=== PATIENT | female | born 1985 | race Two or more races ===

== ENCOUNTER 2016-12-12 01:48 | Emergency (ER) | payer MEDICAID ==
[~2016-12-12] VITALS: Ht 165.1 cm; Wt 81.6 kg
[2016-12-12] MEDS ORDERED: SODIUM CHLORIDE 0.9% 1,000 ML IV ONE (02:45)
[2016-12-12] MEDS ORDERED: NALBUPHINE HCL 10 MG/1ml INJECTION IV ONE (02:45)
[2016-12-12] MEDS ORDERED: ONDANSETRON HCL 4 MG/2 ML VIAL IV ONE ×2 (02:45→04:00)
[2016-12-12 03:02] LABS: Basophils # (auto) 0.1 uL; Eosinophils # (auto) 0.3 uL; Eosinophils % (auto) 2.8 % (0.0-7.0); Hematocrit 42.8 % (36.0-46.0); Hemoglobin 14.6 g/dL (12.2-16.2); Lymphocytes # (auto) 2.8 uL; Lymphocytes % (auto) 27.1 % (10.0-50.0); Mean Corpuscular Hemoglobin 31.1 pg (28.0-32.0); Mean Corpuscular Volume 91.3 fL (80.0-100.0); Monocytes # (auto) 0.6 uL; Monocytes % (auto) 5.7 % (0.0-12.0); Neutrophils # (auto) 6.5 uL; Neutrophils % (auto) 63.4 % (37.0-80.0); Platelet Count (auto) 224 10^3/uL (140-450); Red Cell Distribution Width 13.1 % (11.8-14.3); White Blood Cell 10.2 10^3/uL (4.4-10.8)
[2016-12-12 03:15] LABS: Albumin 3.9 g/dL (3.4-5.0); Alkaline Phosphatase 97 U/L (45-117); Amylase 58 U/L (25-115); Anion Gap 8 (5-15); Aspartate Aminotransferase 15 U/L (15-37); Bilirubin, Total 0.3 mg/dL (0.2-1.0); Blood Urea Nitrogen 17 mg/dL (7-18); Calcium 8.5 mg/dL (8.5-10.1); Carbon Dioxide 26 mmol/L (21-32); Chloride 106 mmol/L (98-107); GFR African American 118 mL/min; GFR Non-African American 97 mL/min; Glucose 118 mg/dL (74-106); Magnesium 2.2 mg/dL (1.6-2.6); Potassium 3.3 mmol/L (3.5-5.1); Sodium 140 mmol/L (136-145)
[2016-12-12] MEDS ORDERED: HYDROmorphone HCL 2 MG/ML VL IV ONE (04:00)
[2016-12-12 04:16] VITALS: BP 122/72
== END 2016-12-12 04:50 | disposition home or self-care (01) ==
LOC: ER 01:50
DX: K29.70 Gastritis, unspecified, without bleeding (principal); Z90.49 Acquired absence of other specified parts of digestive tract
CPT/HCPCS: 36415; 74176; 80053; 82150; 83690; 83735; 84484; 84702; 85025; 96361; 96374; 96375; 96376; 99285; J1170; J2300; J2405; J7030

== ENCOUNTER 2018-10-06 11:29 | Emergency (ER) | payer MEDICAID ==
[~2018-10-06] VITALS: Ht 165.1 cm; Wt 90.7 kg
[2018-10-06 11:50] VITALS: BP 105/72
== END 2018-10-06 13:32 | disposition home or self-care (01) ==
LOC: ER 11:36
DX: M67.431 Ganglion, right wrist (principal); Z90.49 Acquired absence of other specified parts of digestive tract
CPT/HCPCS: 73110

== ENCOUNTER 2024-06-28 08:47 | Inpatient (IN) | payer MEDICAID ==
[~2024-06-28] VITALS: Ht 167.6 cm; Wt 91.5 kg
--- NOTE | 2024-06-28 09:15 | ED.PDOC ---
GI ASSESSMENT HPI Comments 39 y/o F, with PMHx of cholecystectomy and bowel obstruction presents to the ED for CC of abdominal pain. Patient states, that she has been experiencing suprapubic abdominal pain with associated diarrhea x1day. Patient relays, similar symptoms in the past which resulted in a partal colectomy in 2020. Patient denies melena, blood streaked bowels, nausea, or vomiting. No other associated symptoms, modifiers, recent injuries or sick contacts present at this time. 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 History: Denies all SUPERVISOR CYTOLOGY Hx Family History Family History: Unknown Social History Smoker: Non-Smoker Alcohol: Denies ETOH Use Drugs: Denies Drug Use Lives In: Home Constitutional: denies: chills, diaphoresis, fatigue, fever, malaise, sweats, weakness, others EENTM: denies: blurred vision, double vision, ear bleeding, ear discharge, ear drainage, ear pain, ear ringing, eye pain, eye redness, hearing loss, mouth pain, mouth swelling, nasal discharge, nose bleeding, nose congestion, nose pain, photophobia, tearing, throat pain, throat swelling, voice changes, others Respiratory: denies: cough, hemoptysis, orthopnea, SOB at rest, shortness of breath, SOB with excertion, stridor, wheezing, others Cardiovascular: denies: chest pain, dizzy spells, diaphoresis, Dyspnea on exertion, edema, irregular heart beat, left arm pain, lightheadedness, palpitations, PND, syncope, others Gastrointestinal: reports: abdominal pain, diarrhea; denies: abdomen distended, blood streaked bowels, constipated, dysphagia, difficulty swallowing, hematemesis, melena, nausea, poor appetite, poor fluid intake, rectal bleeding, rectal pain, vomiting, others Genitourinary: denies: abnormal vagina bleeding, burning, dyspareunia, dysuria, flank pain, frequency, hematuria, incontinence, pain, , vagina discharge, urgency, others Neurological: denies: dizziness, fainting, headache, left sided numbness, left sided weakness, numbness, paresthesia, pre-existing deficit, right sided numbness, right sided weakness, seizure, speech problems, tingling, tremors, weakness, others Musculoskeletal: denies: back pain, gout, joint pain, joint swelling, muscle pain, muscle stiffness, neck pain, others Integumetry: denies: bruises, change in color, change in hair/nails, dryness, laceration, lesions, lumps, rash, wounds, others Allergic/Immunocompromised: denies: Difficulty Healing, Frequent Infections, Hives, Itching, others Hematologic/Lymphatic: denies: anemia, blood clots, easy bleeding, easy bruising, swollen glands, others Endocrine: denies: excessive hunger, excessive sweating, excessive thirst, excessive urination, flushing, intolerance to cold, intolerance to heat, unexplained weight gain, unexplained weight loss, others Psychiatric: denies: anxiety, bipolar disorder, depression, hopeless, panic disorder, schizophrenia, sleepless, suicidal, others All Other Systems: Reviewed and Negative Physical Exam General Appearance: Moderate Distress HEENT: Normal ENT Inspection, Pharynx Normal, TMs Normal Neck: Full Range of Motion, Non-Tender, Normal, Normal Inspection Respiratory: Chest Non-Tender, Lungs Clear, No Accessory Muscle Use, No Respiratory Distress, Normal Breath Sounds Cardiovascular: No Edema, No JVD, No Murmur, No Gallop, Normal Peripheral Pulses, Regular Rate/Rhythm Breast Exam: Deferred Gastrointestinal: No Organomegaly, Non Tender, No Pulsatile Mass, Normal Bowel Sounds, Soft Genitalia: Deferred Pelvic: Deferred Rectal: Deferred Extremities: No calf tenderness, Normal capillary refill, Normal inspection, Normal range of motion, Non-tender, No pedal edema Musculoskeletal : Apperance: Normal Neurologic: Alert, information security specialist II-XII nml as Tested, No Motor Deficits, Normal Affect, Normal Mood, No Sensory Deficits Cerebellar Function: Normal Reflexes: Normal Skin: Dry, Normal Color, Warm Peripheral Pulses: 3+ Radial (R), 3+ Radial (L) Lymphatic: No Adenopathy Was a procedure done? Was a procedure done?: No GI differential Dx Differential Diagnosis: Bowel Obstruction, Constipation, Diverticular disease, Esophagitis, Gastritis/PUD, Gastroenteritis, Electrolyte Imbalance, Food Poisoning, Bacterial, Viral X-Ray, Labs, Meds, VS Vital Signs Date Time Temp Pulse Resp B/P (MAP) Pulse Ox O2 Delivery O2 Flow Rate FiO2 06/28/24 09:18 98.6 93 16 141/87 (105) 99 98.6 Lab Test 06/28/24 09:20 06/28/24 09:07 Range/Units White Blood Count 8.8 4.4-10.8 10^3/uL Red Blood Count 4.81 4.0-5.20 10^6/uL Hemoglobin 14.2 12.2-16.2 g/dL Hematocrit 42.5 36.0-46.0 % Mean Corpuscular Volume 88.3 80.0-100.0 fL Mean Corpuscular Hemoglobin 29.5 28.0-32.0 pg Mean Corpuscular Hemoglobin Concent 33.4 32.0-36.0 g/dL Red Cell Distribution Width 13.8 11.8-14.3 % Platelet Count 283 140-450 10^3/uL Mean Platelet Volume 9.2 6.9-10.8 fL Neutrophils (%) (Auto) 58.7 37.0-80.0 % Lymphocytes (%) (Auto) 26.0 10.0-50.0 % Monocytes (%) (Auto) 7.1 0.0-12.0 % Eosinophils (%) (Auto) 7.3 H 0.0-7.0 % Basophils (%) (Auto) 0.9 0.0-2.0 % Neutrophils # (Auto) 5.2 1.6-8.6 10 ^3/uL Lymphocytes # (Auto) 2.3 0.4-5.4 10 ^3/uL Monocytes # (Auto) 0.6 0-1.3 10 ^3/uL Eosinophils # (Auto) 0.6 0-0.8 10 ^3/uL Basophils # (Auto) 0.1 0-0.2 10 ^3/uL Nucleated Red Blood Cells 0.0 % Sodium Level 140 136-145 mmol/L Potassium Level 3.7 3.5-5.1 mmol/L Chloride Level 106 98-107 mmol/L Carbon Dioxide Level 26 20-31 mmol/L Anion Gap 8 5-15 Blood Urea Nitrogen 8 L 9-23 mg/dL Creatinine 0.79 0.550-1.02 mg/dL Glomerular Filtration Rate Calc 98 >90 mL/min BUN/Creatinine Ratio 10.1 10.0-20.0 Serum Glucose 92 74-106 mg/dL Calcium Level 9.8 8.7-10.4 mg/dL Urine Color Colorless Yellow Urine Clarity Turbid H Clear Urine pH 5.5 5.0-9.0 Urine Specific [place] 1.006 1.001-1.035 Urine Protein Negative Negative Urine Ketones Negative Negative Urine Blood Negative Negative /uL Urine Nitrite Negative Negative Urine Bilirubin Negative Negative Urine Urobilinogen Normal Negative mg/dL Urine Leukocyte Esterase Negative Negative /uL Urine RBC 1 0 - 4 /hpf Urine Microscopic WBC 1 0-5 /HPF Urine Squamous Epithelial Cells Few <5 /hpf Urine Bacteria Few H None Seen /hpf Urine Glucose Normal Normal mg/dL [place] [id number] Ph: [phone] DIAGNOSTIC IMAGING Diagnostic Imaging Report : [id number] Signed PATIENT: BELKIS ETIENNE MACCT: [id number] UNIT: [id number] : 1985 LOC: ER ROOM / BED: / AGE / SEX: 39 / F ADM STATUS: REG ER SERVICE 1010 ORDERING PHYSICIAN: LUDMILA VANN MD PROCEDURE(s): ABPL - CT AB PEL WO CON-NO ORAL OR IV REASON: diffusepain ORDER NUMBER(s): [id number], ACCESSION NUMBER(s): [id number] CLINICAL INFORMATION: 39 years old, Female; diffuse pain. TECHNIQUE: Axial CT images of the abdomen and pelvis were obtained without IV contrast. Coronal and sagittal reformatted images were obtained, reviewed, and stored. Evaluation of the parenchymal organs is limited without IV contrast. Evaluation of the bowel and mesentery is limited without oral contrast. All CT scans at this medical facility are performed using dose modulation techniques as appropriate to a performed exam including the following: Automated exposure control was utilized; adjustment of the MA and/or KV according to patient size; and use of iterative reconstruction technique. CTDIvol = 18.99 mGy DLP = 1046.56 mGy-cm COMPARISON: None FINDINGS: Lung bases: Lung bases are clear. Liver: Grossly unremarkable in its noncontrast enhanced appearance. No abnormal density or focal lesion identified. Biliary: Cholecystectomy. Spleen: Unremarkable. Pancreas: Grossly unremarkable in its noncontrast enhanced appearance. Adrenal glands: Unremarkable. No mass. Kidneys: No hydronephrosis. No renal or ureteral calculi. Aorta/Vascular: No aneurysm or significant calcification. Retroperitoneum: No mass or lymphadenopathy. Bowel/mesentery: No small bowel obstruction. Nonspecific nondilated fluid-filled small bowel loops. Postsurgical changes of right hemicolectomy with enterocolonic anastomosis at the level of the transverse colon. Scattered colonic diverticula without adjacent inflammatory changes to suggest diverticulitis. Pelvic organs: Grossly unremarkable. Bladder: Unremarkable. No mass. Abdominal wall: Diastasis of the rectus abdominis muscles with slight protrusion of fat at the level of the diastasis. Bones: No acute fracture or suspicious intraosseous lesion. IMPRESSION: 1. No acute abnormality identified in the abdomen or pelvis. 2. Scattered colonic diverticula without adjacent inflammatory changes to suggest diverticulitis. 3. Diastasis of the rectus abdominis muscles with mild protrusion of fat at the level of the diastasis. 4. No small bowel obstruction. Nonspecific nondilated fluid-filled small bowel loops, may be seen with ileus or enteritis in the appropriate clinical setting. ATED BY: VISHAL MEREDITH DO DICTATED DATE/TIME: 06/28/24 1108 SIGNED BY: VISHAL MEREDITH DO SIGNED DATE/TIME: 06/28/24 1108 CC: Patient alert. Came in for abdominal pain. Vitals stable. Answering questions. On examination she is tender to touch. CT scan of the abdomen. She did have bowel surgery in the past for similar symptom. Reviewed history. Explained to the patient. Continue monitoring. Time of 1ST Reevaluation: 09:35 Reevaluation 1ST: Unchanged Patient Education/Counseling: Diagnosis, Treatment Family Education/Counseling: No Family Present Departure 1 Departure Time of Disposition: 10:09 Impression: Primary Impression: Acute abdominal pain Additional Impression: Non-specific colitis Disposition: ADMITTED INPATIENT Admit to: Med Surg Condition: Guarded Critical Care Note Critical Care Time?: No Stability Stability form required: No Heart Score Heart Score: Heart Score Response (Comments) Value History N/A 0 EKG N/A 0 Age N/A 0 Risk Factors N/A 0 Troponin N/A 0 Total 0 I personally scribed for LUDMILA VANN MD ([email or web address]) on 06/28/24 at 09:15. Electronically submitted by Amara Ziegler ([employer]). I personally scribed for LUDMILA VANN MD ([email or web address]) on 06/28/24 at 11:57. Electronically submitted by Amara Ziegler ([employer]). LUDMILA VANN MD Jun 28, 2024 09:15
[2024-06-28 09:32] LABS: Urine Bacteria FEW /hpf (None Seen); Urine Blood Negative /uL (Negative); Urine Clarity Turbid (Clear); Urine Color Colorless (Yellow); Urine Protein, UAD Negative (Negative); Urine Specific Gravity 1.006 (1.001-1.035); Urine Squamous Epithelial Cell FEW /hpf (<5); Urine Urobilinogen Normal (Negative); Urine WBC 1 /HPF (0-5); Urine pH 5.5 (5.0-9.0)
[2024-06-28 09:39] LABS: Basophils # (auto) 0.1 10 ^3/uL (0-0.2); Basophils % (auto) 0.9 % (0.0-2.0); Eosinophils # (auto) 0.6 10 ^3/uL (0-0.8); Eosinophils % (auto) 7.3 % (0.0-7.0); Hematocrit 42.5 % (36.0-46.0); Hemoglobin 14.2 g/dL (12.2-16.2); Lymphocytes # (auto) 2.3 10 ^3/uL (0.4-5.4); Mean Corpuscular Hemoglobin 29.5 pg (28.0-32.0); Mean Corpuscular Hgb Conc. 33.4 g/dL (32.0-36.0); Mean Corpuscular Volume 88.3 fL (80.0-100.0); Monocytes # (auto) 0.6 10 ^3/uL (0-1.3); Monocytes % (auto) 7.1 % (0.0-12.0); Neutrophils # (auto) 5.2 10 ^3/uL (1.6-8.6); Neutrophils % (auto) 58.7 % (37.0-80.0); Platelet Count (auto) 283 10^3/uL (140-450); Red Blood Cells 4.81 10^6/uL (4.0-5.20); Red Cell Distribution Width 13.8 % (11.8-14.3); White Blood Cell 8.8 10^3/uL (4.4-10.8)
[2024-06-28 09:45] LABS: Chloride 106 mmol/L (98-107); Potassium 3.7 mmol/L (3.5-5.1); Sodium 140 mmol/L (136-145)
[2024-06-28 09:46] LABS: Anion Gap 8 (5-15); Calcium 9.8 mg/dL (8.7-10.4); Carbon Dioxide 26 mmol/L (20-31)
[2024-06-28 09:51] LABS: BUN/Creatinine Ratio 10.1 (10.0-20.0); Blood Urea Nitrogen 8 mg/dL (9-23); Glucose 92 mg/dL (74-106)
--- NOTE | 2024-06-28 11:10 | DVH ---
CLINICAL INFORMATION: 39 years old, Female; diffuse pain. TECHNIQUE: Axial CT images of the abdomen and pelvis were obtained without IV contrast. Coronal and s agittal reformatted images were obtained, reviewed, and stored. Evaluation of the parenchymal organs is limited without IV contrast. Evaluation of the bowel and mesentery is limited without oral contras t. All CT scans at this medical facility are performed using dose modulation techniques as appropriat e to a performed exam including the following: Automated exposure control was utilized; adjustment of the MA and/or KV according to patient size; and use of iterative reconstruction technique. CTDIvol = 18.99 mGy DLP = 1046.56 mGy-cm COMPARISON: None FINDINGS: Lung bases: Lung bases are clear. Liver: Grossly unremarkable in its noncontrast enhanced appearance. No abnormal density or focal lesi on identified. Biliary: Cholecystectomy. Spleen: Unremarkable. Pancreas: Grossly unremarkable in its noncontrast enhanced appearance. Adrenal glands: Unremarkable. No mass. Kidneys: No hydronephrosis. No renal or ureteral calculi. Aorta/Vascular: No aneurysm or significant calcification. Retroperitoneum: No mass or lymphadenopathy. Bowel/mesentery: No small bowel obstruction. Nonspecific nondilated fluid-filled small bowel loops. P ostsurgical changes of right hemicolectomy with enterocolonic anastomosis at the level of the transve rse colon. Scattered colonic diverticula without adjacent inflammatory changes to suggest diverticuli tis. Pelvic organs: Grossly unremarkable. Bladder: Unremarkable. No mass. Abdominal wall: Diastasis of the rectus abdominis muscles with slight protrusion of fat at the level of the diastasis. Bones: No acute fracture or suspicious intraosseous lesion. IMPRESSION: 1. No acute abnormality identified in the abdomen or pelvis. 2. Scattered colonic diverticula without adjacent inflammatory changes to suggest diverticulitis. 3. Diastasis of the rectus abdominis muscles with mild protrusion of fat at the level of the diastasi s. 4. No small bowel obstruction. Nonspecific nondilated fluid-filled small bowel loops, may be seen wit h ileus or enteritis in the appropriate clinical setting.
--- NOTE | 2024-06-28 15:44 | DVHHP2 ---
History of Present Illness Reason for Visit: abd pain History of Present Illness 39-year-old female with a past medical history of cholecystectomy and partial bowel resection for obstruction in 2020, who presents to the emergency department with acute onset lower abdominal pain that began around 1:00 PM today. She describes the pain as sharp, constant, and located in the lower abdomen, without any radiation. She reports that movement worsens the pain, and nothing relieves it. Given her surgical history, she is concerned about possible bowel obstruction, as she has experienced similar symptoms in the past.She denies fever, nausea, vomiting, hematemesis, melena, hematochezia, chest pain, or shortness of breath. She has been able to tolerate oral intake and has not had any episodes of vomiting. In the ED, her CBC and BMP were unremarkable. CT scan of the abdomen and pelvis revealed: Uncomplicated diverticulitis (no abscess or perforation) Diastasis of the rectus abdominis muscles with mild protrusion of intra-abdominal fat, The patient is clinically stable but reports ongoing pain. Given imaging findings and clinical presentation, the patient will be admitted for observation and medical management. A general surgery consultation has been requested, Dr. Thacker Past Medical History See HPI above Past Surgical History See HPI above Family History Reviewed, non-contributory to the management of this case. Past Social History The patient lives at home, denies smoking, alcohol or illicit drugs abuse. Review of Systems Constitutional: No: Fever, Chills, Sweats, Weakness, Malaise, Other Eyes: No: Pain, Vision change, Conjunctivae inflammation, Eyelid inflammation, Other, Redness ENT: No: Ear pain, Ear discharge, Nose pain, Nose discharge, Nose congestion, Mouth pain, Mouth swelling, Throat pain, Throat swelling, Other Respiratory: No: Cough, Dry, Shortness of breath, SOB with excertion, Wheezing, Hemoptysis, Pleuritic Pain, Sputum, Wheezing, Other Cardiovascular: No: Chest Pain, Palpitations, Orthopnea, Paroxysmal Noc. Dyspnea, Edema, Lt Headedness, Other Gastrointestinal: Nausea, Vomiting, Abdominal Pain; No: Diarrhea, Constipation, Melena, Hematochezia, Other Genitourinary: No Dysuria, No Frequency, No Incontinence, No Hematuria, No Retention, No Other Musculoskeletal: No: other, neck pain, shoulder pain, arm pain, back pain, hand pain, leg pain, foot pain Skin: No: Rash, Lesions, Jaundice, Bruising, Other Neurological: No: Weakness, Numbness, Incoordination, Change in speech, Confusion, Seizures, Other Allergies: Coded Allergies: NO KNOWN ALLERGIES (Unverified , 12/12/16) Exam Vital Signs Vital Signs Date Time Temp Pulse Resp B/P (MAP) Pulse Ox O2 Delivery O2 Flow Rate FiO2 06/28/24 09:18 98.6 93 16 141/87 (105) 99 98.6 General Appearance: Alert, Oriented X3, Cooperative, No acute distress HEENT: Atraumatic, PERRLA, EOMI, Mucous membr. moist/pink Respiratory: Clear to auscultation, Normal air movement Cardiovascular: Regular rate, Normal S1, Normal S2, No murmurs Abdominal: Normal bowel sounds, Soft, No hepatospenomegaly, No masses, Other (soft lower abd ) Extremities: No clubbing, No cyanosis, No edema, Normal pulses, No tenderness/swelling Skin: No rashes, No breakdown, No significant lesion Neuro: Normal gait, Normal speech, Strength at 5/5 X4 ext, Normal tone, Sensation intact, Cranial nerves 3-12 NL Psych/Mental Status: Mental status NL, Mood NL Labs/Xrays CT scan abdomen pelvis shows diverticulitis, Abdominal wall diastasis with mild fat protrusion I reviewed labs, imaging CT scan abdomen pelvis, EKG and all diagnostic studies on this patient from ED records and the medical chart Labs Test 06/28/24 09:20 06/28/24 09:07 Range/Units White Blood Count 8.8 4.4-10.8 10^3/uL Red Blood Count 4.81 4.0-5.20 10^6/uL Hemoglobin 14.2 12.2-16.2 g/dL Hematocrit 42.5 36.0-46.0 % Mean Corpuscular Volume 88.3 80.0-100.0 fL Mean Corpuscular Hemoglobin 29.5 28.0-32.0 pg Mean Corpuscular Hemoglobin Concent 33.4 32.0-36.0 g/dL Red Cell Distribution Width 13.8 11.8-14.3 % Platelet Count 283 140-450 10^3/uL Mean Platelet Volume 9.2 6.9-10.8 fL Neutrophils (%) (Auto) 58.7 37.0-80.0 % Lymphocytes (%) (Auto) 26.0 10.0-50.0 % Monocytes (%) (Auto) 7.1 0.0-12.0 % Eosinophils (%) (Auto) 7.3 H 0.0-7.0 % Basophils (%) (Auto) 0.9 0.0-2.0 % Neutrophils # (Auto) 5.2 1.6-8.6 10 ^3/uL Lymphocytes # (Auto) 2.3 0.4-5.4 10 ^3/uL Monocytes # (Auto) 0.6 0-1.3 10 ^3/uL Eosinophils # (Auto) 0.6 0-0.8 10 ^3/uL Basophils # (Auto) 0.1 0-0.2 10 ^3/uL Nucleated Red Blood Cells 0.0 % Sodium Level 140 136-145 mmol/L Potassium Level 3.7 3.5-5.1 mmol/L Chloride Level 106 98-107 mmol/L Carbon Dioxide Level 26 20-31 mmol/L Anion Gap 8 5-15 Blood Urea Nitrogen 8 L 9-23 mg/dL Creatinine 0.79 0.550-1.02 mg/dL Glomerular Filtration Rate Calc 98 >90 mL/min BUN/Creatinine Ratio 10.1 10.0-20.0 Serum Glucose 92 74-106 mg/dL Calcium Level 9.8 8.7-10.4 mg/dL Urine Color Colorless Yellow Urine Clarity Turbid H Clear Urine pH 5.5 5.0-9.0 Urine Specific [place] 1.006 1.001-1.035 Urine Protein Negative Negative Urine Ketones Negative Negative Urine Blood Negative Negative /uL Urine Nitrite Negative Negative Urine Bilirubin Negative Negative Urine Urobilinogen Normal Negative mg/dL Urine Leukocyte Esterase Negative Negative /uL Urine RBC 1 0 - 4 /hpf Urine Microscopic WBC 1 0-5 /HPF Urine Squamous Epithelial Cells Few <5 /hpf Urine Bacteria Few H None Seen /hpf Urine Glucose Normal Normal mg/dL Assessment/Plan Assessment/Plan 39-year-old female with history of bowel surgery, now presenting with acute lower abdominal pain, found to have uncomplicated diverticulitis and rectus diastasis on imaging. Acute uncomplicated diverticulitis No abscess or perforation Afebrile, hemodynamically stable Plan: Admit for IV fluids and symptom management Start IV antibiotics ( Zosyn) Keep NPO or clear liquids initially, advance diet as tolerated Monitor WBC, vitals, and abdominal exam Transition to oral antibiotics when improving ordered surgical follow-up outpatient as needed acute Abdominal wall diastasis with mild fat protrusion Incidental finding on CT No signs of hernia incarceration or strangulation Plan: General surgery consult for evaluation Pain control and observation Post-operative history bowel resection in 2020 No current evidence of obstruction found ct scan Monitor for signs of ileus or developing obstruction Serial abdominal exams Pain management Continue IV pain medications as needed (morphine ) Reassess regularly fen/ppx npo ivf protonix scd no dvt ppx since no hx of gerds or gi bleed DISPOSITION Admit to the medical floor for IV antibiotics, fluids, pain control, and surgical evaluation. Monitor for clinical improvement or any signs of complication. Plan discussed with: Patient Date of Service: Jun 28, 2024 Billing Provider: ANTIONE STONE DNP Common Visit Codes: 11094-PZMCMPC INP/OBS CARE (HIGH) ANTIONE STONE DNP Jun 28, 2024 15:44
[2024-06-28] MEDS ORDERED: DOCUSATE SOD 100 MG CAP PO PRN (17:00)
[2024-06-28] MEDS ORDERED: NITROGLYCERIN 0.4 MG SL TAB SL PRN (17:00)
[2024-06-28] MEDS: MORPHINE SULFATE INJ 2 MG/ml SYRG IV PRN (19:01)
[2024-06-28] MEDS: SODIUM CHLORIDE 0.9% 1,000 ML IV SCH (22:14)
[2024-06-28] MEDS: PIPERACILLIN-TAZOB 3.375GM 100 ML IV ONE (23:36)
[2024-06-29] VITALS (7 sets, daily range): BP systolic 105–113; BP diastolic 61–73; PULSE 65–88; RESP 16–21; TEMP 98.1–98.3; O2SAT 96–97
[2024-06-29] MEDS: PIPERACILLIN-TAZOB 3.375GM 100 ML IV SCH (03:07)
[2024-06-29 06:01] LABS: Basophils # (auto) 0.1 10 ^3/uL (0-0.2); Basophils % (auto) 0.6 % (0.0-2.0); Eosinophils # (auto) 0.6 10 ^3/uL (0-0.8); Eosinophils % (auto) 7.1 % (0.0-7.0); Hematocrit 39.2 % (36.0-46.0); Hemoglobin 13.4 g/dL (12.2-16.2); Lymphocytes % (auto) 22.3 % (10.0-50.0); Mean Corpuscular Hgb Conc. 34.2 g/dL (32.0-36.0); Mean Corpuscular Volume 87.6 fL (80.0-100.0); Monocytes # (auto) 0.8 10 ^3/uL (0-1.3); Neutrophils # (auto) 5.5 10 ^3/uL (1.6-8.6); Nucleated Red Blood Cells % 0.1 %; Platelet Count (auto) 240 10^3/uL (140-450); Red Blood Cells 4.47 10^6/uL (4.0-5.20); Red Cell Distribution Width 13.7 % (11.8-14.3); White Blood Cell 9.1 10^3/uL (4.4-10.8)
[2024-06-29 06:13] LABS: Alanine Aminotransferase 33 U/L (7-40); Alkaline Phosphatase 85 U/L (46-116); Anion Gap 8 (5-15); Aspartate Aminotransferase 22 U/L (13-40); BUN/Creatinine Ratio 11.9 (10.0-20.0); Bilirubin, Total 0.7 mg/dL (0.2-1.0); Blood Urea Nitrogen 10 mg/dL (9-23); Calcium 9.1 mg/dL (8.7-10.4); Carbon Dioxide 26 mmol/L (20-31); Chloride 105 mmol/L (98-107); Glucose 89 mg/dL (74-106); Potassium 3.4 mmol/L (3.5-5.1); Sodium 139 mmol/L (136-145); Total Protein 6.9 g/dL (5.7-8.2)
[2024-06-29] MEDS: ONDANSETRON HCL 4 MG/2 ML VIAL IV PRN (08:01)
[2024-06-29] MEDS ORDERED: POTASSIUM CHL 20MEQ/50ML 50 ML IV ONE (08:45)
[2024-06-29] MEDS: SODIUM CHL 0.9% 100 ML IV ONE (10:46)
[2024-06-29] MEDS: POTASSIUM CHL 20 Meq TABLET PO ONE (11:24)
[2024-06-29] MEDS: FAMOTIDINE (10MG/ML) 2ML VL IV SCH (11:26)
--- NOTE | 2024-06-29 13:33 | DVHINCON2 ---
Date of service: Jun 29, 2024 Reason for Consultation diverticulitis History of Present Illness History Source: Patient, MD Notes Exam Limitations: No limitations HPI 39 year old female presented to the Er with complaint of abdominal pain. patient states pain began yesterday constant ,and sharp. CT scan of the abdomen and pelvis revealed: Uncomplicated diverticulitis (no abscess or perforation) Diastasis of the rectus abdominis muscles with mild protrusion of intra- abdominal fat Patient was just concerned she might have a bowel obstruction. Past Medical History Cardiac: No pertinent Hx Pulmonary: No pertinent Hx Central Nervous System: No pertinent Hx GI: Diverticulosis Hemotology/Oncology: No pertinent Hx Hepatobiliary: No pertinent Hx Psychiatric: No pertinent Hx Musculoskeletal: No pertinent Hx Rheumotologic: No pertinent Hx Infectious Disease: No peritnent Hx ENT: No pertinent Hx Renal/: No pertinent Hx Endocrine: No pertinent Hx Dermatology: No pertinent Hx Past Surgical History: Cholecystectomy, Other (Bowel resection) Patient Family History: FH: thyroid cancer G8 MOTHER Smoker: No Hx (Negative) Alocohol: None Drugs: None Lives with: With family Review of Systems Constitutional: No symptom reported Ears, Nose, & Throat: No symptom reported Eyes: No symptom reported Pulmonary/Respiratory: No symptom reported Cardiovascular: No symptom reported Gastrointestinal: No symptom reported Genitourinary: No symptom reported Musculoskeletal: No symptom reported Skin: No symptom reported Psychiatric: No symptom reported Endocrine: No symptom reported Hemotologic/Lymphatic: No symptom reported H&P Exam Vital Signs Vital Signs Date Time Temp Pulse Resp B/P (MAP) Pulse Ox O2 Delivery O2 Flow Rate FiO2 06/29/24 13:03 98.2 88 16 113/73 (86) 96 98.2 06/29/24 08:55 Room Air* 0 21 General Appeara: Well developed, Well nourished, Normal Appearance Head Exam: Normal inspection Abdominal Pain Onset Location: Other (lower abdomen) Tendon/ Neuro: Normal sensation HISTORIAN [employer] Exam: Normal hearing, Normal speech, PERRL Neuro/Mental St: Alert, Oriented Appearance: Appropriate appearance Eye contact/ Speech: Cooperative Thoughts/Psych: Normal thought pattern Skin Exam: Normal inspection, Normal color, Warm/dry Labs/Xrays Labs Test 06/29/24 05:17 06/28/24 09:07 Range/Units White Blood Count 9.1 4.4-10.8 10^3/uL Red Blood Count 4.47 4.0-5.20 10^6/uL Hemoglobin 13.4 12.2-16.2 g/dL Hematocrit 39.2 36.0-46.0 % Mean Corpuscular Volume 87.6 80.0-100.0 fL Mean Corpuscular Hemoglobin 30.0 28.0-32.0 pg Mean Corpuscular Hemoglobin Concent 34.2 32.0-36.0 g/dL Red Cell Distribution Width 13.7 11.8-14.3 % Platelet Count 240 140-450 10^3/uL Mean Platelet Volume 9.2 6.9-10.8 fL Neutrophils (%) (Auto) 61.0 37.0-80.0 % Lymphocytes (%) (Auto) 22.3 10.0-50.0 % Monocytes (%) (Auto) 9.0 0.0-12.0 % Eosinophils (%) (Auto) 7.1 H 0.0-7.0 % Basophils (%) (Auto) 0.6 0.0-2.0 % Neutrophils # (Auto) 5.5 1.6-8.6 10 ^3/uL Lymphocytes # (Auto) 2.0 0.4-5.4 10 ^3/uL Monocytes # (Auto) 0.8 0-1.3 10 ^3/uL Eosinophils # (Auto) 0.6 0-0.8 10 ^3/uL Basophils # (Auto) 0.1 0-0.2 10 ^3/uL Nucleated Red Blood Cells 0.1 % Sodium Level 139 136-145 mmol/L Potassium Level 3.4 L 3.5-5.1 mmol/L Chloride Level 105 98-107 mmol/L Carbon Dioxide Level 26 20-31 mmol/L Anion Gap 8 5-15 Blood Urea Nitrogen 10 9-23 mg/dL Creatinine 0.84 0.550-1.02 mg/dL Glomerular Filtration Rate Calc 91 >90 mL/min BUN/Creatinine Ratio 11.9 10.0-20.0 Serum Glucose 89 74-106 mg/dL Calcium Level 9.1 8.7-10.4 mg/dL Total Bilirubin 0.7 0.2-1.0 mg/dL Aspartate Amino Transferase (AST) 22 13-40 U/L Alanine Aminotransferase (ALT) 33 7-40 U/L Alkaline Phosphatase 85 46-116 U/L Total Protein 6.9 5.7-8.2 g/dL Albumin 4.0 3.2-4.8 g/dL Urine Color Colorless Yellow Urine Clarity Turbid H Clear Urine pH 5.5 5.0-9.0 Urine Specific [place] 1.006 1.001-1.035 Urine Protein Negative Negative Urine Ketones Negative Negative Urine Blood Negative Negative /uL Urine Nitrite Negative Negative Urine Bilirubin Negative Negative Urine Urobilinogen Normal Negative mg/dL Urine Leukocyte Esterase Negative Negative /uL Urine RBC 1 0 - 4 /hpf Urine Microscopic WBC 1 0-5 /HPF Urine Squamous Epithelial Cells Few <5 /hpf Urine Bacteria Few H None Seen /hpf Urine Glucose Normal Normal mg/dL Assessment/Plan Problem List: (1) Diverticulitis (2) Acute abdominal pain (3) Hx of cholecystectomy (4) History of bowel resection Plan no complaint of pain, denies nausea , vomiting, fever abdomen is soft, non tender, non distended tolerating clear liquid diet image report reviewed, lab reviewed Plan: no surgical intervention Please send home with antibiotics if discharged Case discussed with Dr. Thacker and agrees Plan discussed with: Patient, Other (Dr. Thacker ) Visit Coding Surgery Date of Service if different f: Jun 29, 2024 Billing Provider: KEVAN THACKER MD Surgery Visit Codes: 83938 - INP CONSULT <80 MIN LORENE ETIENNE LATIN PROFESSOR Jun 29, 2024 13:33
[2024-06-29] MEDS ORDERED: LEVO750T40 PO (14:40)
[2024-06-29] MEDS ORDERED: MET500T PO (14:40)
--- NOTE | 2024-06-29 14:44 | DVHDSRES ---
Discharge Summary Date of Admission Resident Creating Document: FATUMA LANZA RESIDENT Jun 28, 2024 at 16:55 Date of Discharge: Jun 29, 2024 Admitting Diagnosis Abdominal pain Labs/Diagnostic Data: Laboratory Results Test 06/29/24 05:17 06/28/24 09:07 White Blood Count 9.1 10^3/uL (4.4-10.8) Red Blood Count 4.47 10^6/uL (4.0-5.20) Hemoglobin 13.4 g/dL (12.2-16.2) Hematocrit 39.2 % (36.0-46.0) Mean Corpuscular Volume 87.6 fL (80.0-100.0) Mean Corpuscular Hemoglobin 30.0 pg (28.0-32.0) Mean Corpuscular Hemoglobin Concent 34.2 g/dL (32.0-36.0) Red Cell Distribution Width 13.7 % (11.8-14.3) Platelet Count 240 10^3/uL (140-450) Mean Platelet Volume 9.2 fL (6.9-10.8) Neutrophils (%) (Auto) 61.0 % (37.0-80.0) Lymphocytes (%) (Auto) 22.3 % (10.0-50.0) Monocytes (%) (Auto) 9.0 % (0.0-12.0) Eosinophils (%) (Auto) 7.1 % (0.0-7.0) Basophils (%) (Auto) 0.6 % (0.0-2.0) Neutrophils # (Auto) 5.5 10 ^3/uL (1.6-8.6) Lymphocytes # (Auto) 2.0 10 ^3/uL (0.4-5.4) Monocytes # (Auto) 0.8 10 ^3/uL (0-1.3) Eosinophils # (Auto) 0.6 10 ^3/uL (0-0.8) Basophils # (Auto) 0.1 10 ^3/uL (0-0.2) Nucleated Red Blood Cells 0.1 % Sodium Level 139 mmol/L (136-145) Potassium Level 3.4 mmol/L (3.5-5.1) Chloride Level 105 mmol/L (98-107) Carbon Dioxide Level 26 mmol/L (20-31) Anion Gap 8 (5-15) Blood Urea Nitrogen 10 mg/dL (9-23) Creatinine 0.84 mg/dL (0.550-1.02) Glomerular Filtration Rate Calc 91 mL/min (>90) BUN/Creatinine Ratio 11.9 (10.0-20.0) Serum Glucose 89 mg/dL (74-106) Calcium Level 9.1 mg/dL (8.7-10.4) Total Bilirubin 0.7 mg/dL (0.2-1.0) Aspartate Amino Transferase (AST) 22 U/L (13-40) Alanine Aminotransferase (ALT) 33 U/L (7-40) Alkaline Phosphatase 85 U/L (46-116) Total Protein 6.9 g/dL (5.7-8.2) Albumin 4.0 g/dL (3.2-4.8) Urine Color Colorless (Yellow) Urine Clarity Turbid (Clear) Urine pH 5.5 (5.0-9.0) Urine Specific [place] 1.006 (1.001-1.035) Urine Protein Negative (Negative) Urine Ketones Negative (Negative) Urine Blood Negative /uL (Negative) Urine Nitrite Negative (Negative) Urine Bilirubin Negative (Negative) Urine Urobilinogen Normal mg/dL (Negative) Urine Leukocyte Esterase Negative /uL (Negative) Urine RBC 1 /hpf (0 - 4) Urine Microscopic WBC 1 /HPF (0-5) Urine Squamous Epithelial Cells Few /hpf (<5) Urine Bacteria Few /hpf (None Seen) Urine Glucose Normal mg/dL (Normal) Other Laboratory Tests 06/29/24 05:17 Brief Hx & Hospital Course: Patient is 79-year-old female with past medical history of partial small-bowel obstruction in 2011, cholecystectomy who presented to hospital with a chief complaint of acute lower abdominal pain started one day before. Pain was located in lower abdomen, sharp, constant. CT scan of the abdomen was done which showed uncomplicated diverticulitis. With further examination patient did not have tachycardia, no fever, no elevated white count, tolerable with pain, initiated on IV antibiotics Zosyn and started clear liquid diet. Patient able to tolerate diet. Given patient is hemodynamically stable, no sirs, uncomplicated diverticulitis, surgery cleared for discharge with oral antibiotic, patient will be discharged home with levofloxacin 750 mg p.o. daily for seven days, metronidazole 500 mg p.o. t.i.d. for seven days. Follow with primary care physician within one week. [facility] in one week as well. Patient agreed with discharge plan and discharged home with oral antibiotic. Condition at Discharge: Stable Final Diagnosis/Problems List Acute uncomplicated diverticulitis Abdominal pain likely due to above Hypokalemia Obesity BMI 32.6 kg/m2 History of SBO History of small-bowel resection. History of cholecystectomy Discharge Disposition: Home Discharge Instruct/Medications Diet: See Comment Diet comment: clear liquid diet for 15 days Activity: No Restrictions, As Tolerated Follow Up/Referral: -follow up with pcp in 1 week Medications: see prescription Discharge Statement: "Patient was advised to return to the ER or call 911 if any headaches, dizziness, shortness of breath, chest pain, abdominal pain, bleeding, fevers, or worsening of medical condition. Patient was counseled about treatment plan, medications, possible side effects, patientverbalized understanding. All questions were answered to the best of my ability. This discharge took greater then 30 minutes in planning, reviewing documentation, counseling the patient, and discussing with other team members." ASSESSMENT ASSESSMENT Assessment uncomplicated diverticulitis Date of Service: Jun 29, 2024 Billing Provider: FÁTIMA WILCOX MD Common Visit Codes: 97256-MEH/OBS DISCH DAY >30min FATUMA LANZA RESIDENT Jun 29, 2024 14:44 FÁTIMA WILCOX MD Jun 29, 2024 16:47
== END 2024-06-29 15:10 | disposition home or self-care (01) | DRG 244 ==
LOC: ER 08:47 → OVERFLOW 16:55
PROVIDERS: ADMIT Internal Medicine; ATTEND Internal Medicine
DX: K57.32 Diverticulitis of large intestine without perforation or abscess without bleeding (principal); E66.9 Obesity, unspecified; E87.6 Hypokalemia; M62.08 Separation of muscle (nontraumatic), other site; Z90.49 Acquired absence of other specified parts of digestive tract; Z68.32 Body mass index [BMI] 32.0-32.9, adult
CPT/HCPCS: 36415; 74176; 80048; 80053; 81001; 85025; G0378; J2405; J2543; J3490